=== PATIENT | male | born 1965 | race Two or more races ===

== ENCOUNTER 2021-10-18 04:22 | Emergency (ER) | payer MEDICAID, OTHER ==
[~2021-10-18] VITALS: Ht 177.8 cm; Wt 80.0 kg
[2021-10-18] MEDS ORDERED: ONDANSETRON HCL 4MG/2ML INJ IV STA (04:32)
[2021-10-18] MEDS ORDERED: MORPHINE SULFATE 4 MG/ML CPJ (NOT FOR IM USE) IV STA (04:32)
[2021-10-18] MEDS ORDERED: SODIUM CHLORIDE 0.9% 1,000 ML IV ONE (04:45)
[2021-10-18 05:11] LABS: BASOPHILS % 0.3 % (0.0-2.0); EOSINOPHILS % 0.1 % (0.0-5.0); HEMOGLOBIN. 15.1 g/dL (14.0-18.0); LYMPHOCYTES % 11.7 % (20.0-50.0); MEAN CORPUSCULAR HEMOGLOBIN 30.7 pg (28.0-32.0); MEAN CORPUSCULAR VOLUME 89.3 fL (80.0-94.0); MEAN PLATELET VOLUME 8.2 fl (7.4-10.4); NEUTROPHILS % 81.9 % (40.0-76.0); PLATELET 299 x1000/uL (130-400); RED BLOOD CELL COUNT 4.92 mill/uL (4.7-6.1); RED CELL DISTRIBUTION WIDTH 13.3 % (11.6-14.6)
[2021-10-18 05:22] LABS: CHLORIDE 108 mEq/L (98-107)
[2021-10-18] MEDS ORDERED: IBUP-2030 MT (08:22)
[2021-10-18] MEDS ORDERED: HYDR-4001 MT (08:22)
[2021-10-18 09:00] VITALS: BP 123/85
== END 2021-10-18 09:07 | disposition home or self-care (01) ==
LOC: ER 04:22
DX: R07.89 Other chest pain (principal); R51.9 Headache, unspecified; V49.9XXA Car occupant (driver) (passenger) injured in unspecified traffic accident, initial encounter; Y93.89 Activity, other specified; Y92.89 Other specified places as the place of occurrence of the external cause; Y99.8 Other external cause status
CPT/HCPCS: 36415; 70450; 71045; 71260; 72125; 80048; 85025; 96361; 96374; 96375; 99291; J2270; J2405; J7030

== ENCOUNTER 2023-10-04 18:09 | Inpatient (IN) | payer SELFPAY ==
[~2023-10-04] VITALS: Ht 172.7 cm; Wt 81.6 kg
[~2023-10-04 18:09] MED LIST: HYDR-4001 MT; IBUP-2030 MT
[2023-10-04] MEDS ORDERED: KETOROLAC 15MG/ML VIAL IM ONE (18:30)
[2023-10-04] MEDS: MORPHINE SULFATE 4 MG/ML INJ (FOR IV/IM USE) IV ONE ×2 (20:42→22:12)
[2023-10-04] MEDS: PROPOFOL 200MG/20ML VIAL IV ONE (21:02)
[2023-10-05] MEDS ORDERED: ONDANSETRON HCL 4MG/2ML INJ IV PRN (02:15)
[2023-10-05] MEDS ORDERED: GUAIFENESIN 200MG/10ML SUGAR FREE UDC PO PRN (02:15)
[2023-10-05] MEDS ORDERED: IPRATROPIUM/ALBUTEROL 0.5-3(2.5)MG/3ML NEB HHN PRN (02:15)
[2023-10-05] MEDS ORDERED: DOCUSATE SODIUM 100MG CAPSULE PO PRN (02:15)
[2023-10-05] MEDS ORDERED: MAGNESIUM/ALUMINUM HYDROXIDE/SIMETHICONE 30ML UDC PO PRN (02:15)
[2023-10-05] MEDS ORDERED: ACETAMINOPHEN 325MG TABLET PO PRN (02:15)
[2023-10-05] MEDS ORDERED: CLONIDINE 0.1MG TABLET PO PRN (02:15)
[2023-10-05] MEDS ORDERED: NALOXONE HCL 0.4MG/ML VIAL IV PRN (02:30)
[2023-10-05 05:02] LABS: CREATINE KINASE 115 IU/L (46-171)
[2023-10-05 05:06] LABS: PARTIAL THROMBOPLASTIN TIME 27.5 sec (23.4-31.0); PROTHROMBIN TIME 10.9 sec (9.6-11.0)
[2023-10-05] MEDS: MORPHINE SULFATE 2 MG/ML CPJ (NOT FOR IM USE) IV PRN (10:33)
[2023-10-05 11:39] VITALS: BP 133/79; PULSE 82; RESP 18; TEMP 98.4
[2023-10-05 16:00] VITALS: BP 118/71; PULSE 66; RESP 20; TEMP 98.2
[2023-10-05 16:03] LABS: CREATINE KINASE 83 IU/L (46-171)
[2023-10-05 19:48] VITALS: BP 138/86; PULSE 78; RESP 22; TEMP 96.9
[2023-10-05 23:35] LABS: CLARITY URINE CLEAR (CLEAR); COLOR URINE DARK YELLOW (YELLOW); GLUCOSE URINE NEGATIVE (NEGATIVE); KETONES URINE TRACE (NEGATIVE); LEUKOCYTE ESTERASE URINE NEGATIVE (NEGATIVE); NITRITE URINE NEGATIVE (NEGATIVE); OCCULT BLOOD URINE NEGATIVE (NEGATIVE); PROTEIN URINE NEGATIVE (NEGATIVE); SPECIFIC GRAVITY URINE 1.026 (1.005-1.030)
[2023-10-05 23:49] VITALS: BP 127/78; PULSE 73; RESP 19; TEMP 97.3
[2023-10-06 04:19] VITALS: BP 127/74; PULSE 88; RESP 20; TEMP 96.9
[2023-10-06 07:41] LABS: BASOPHILS % 0.4 % (0.0-2.0); EOSINOPHILS % 1.9 % (0.0-5.0); HEMATOCRIT. 42.7 % (42.0-52.0); HEMOGLOBIN. 14.9 g/dL (14.0-18.0); LYMPHOCYTES % 23.7 % (20.0-50.0); MEAN CORPUSCULAR HEMOGLOBIN 30.6 pg (28.0-32.0); MEAN CORPUSCULAR HGB CONC 34.9 g/dL (31.0-37.0); MEAN CORPUSCULAR VOLUME 87.7 fL (80.0-94.0); MEAN PLATELET VOLUME 8.8 fl (7.4-10.4); MONOCYTES % 10.5 % (2.0-8.0); NEUTROPHILS % 63.5 % (40.0-76.0); PLATELET 199 x1000/uL (130-400); RED BLOOD CELL COUNT 4.86 mill/uL (4.7-6.1); RED CELL DISTRIBUTION WIDTH 13.7 % (11.6-14.6); WHITE BLOOD COUNT 7.3 x1000/uL (4.5-11.0)
[2023-10-06 08:00] VITALS: BP 102/78; PULSE 72; RESP 18; TEMP 97.7
[2023-10-06 08:19] LABS: ALANINE AMINOTRANSFERASE < 7 IU/L (10-49); ALBUMIN 3.8 g/dL (3.2-4.8); ASPARTATE AMINOTRANSFERASE 15 IU/L (<34); BILIRUBIN TOTAL 0.8 mg/dL (0.1-1.0); CALCIUM 8.3 mg/dL (8.7-10.4); CARBON DIOXIDE 26 mEq/L (21-32); CHLORIDE 104 mEq/L (98-107); CHOLESTEROL 160 mg/dL (<200); CREATININE 0.6 mg/dL (0.6-1.3); GLUCOSE 106 mg/dL (70-105); HDL CHOLESTEROL 46 mg/dL (>55); LDL CHOLESTEROL 93 mg/dL (5-100); POTASSIUM 3.9 mEq/L (3.5-5.1); PROTEIN TOTAL 6.1 g/dL (6.0-8.3); SODIUM 138 mEq/L (136-145); T4 FREE 1.23 ng/dL (0.89-1.76); THYROID STIMULATING HORMONE 1.52 uIU/mL (0.55-4.78); TRIGLYCERIDE 99 mg/dL (0-150); UREA NITROGEN BLOOD 9 mg/dL (9-23)
[2023-10-06 12:00] VITALS: BP 110/71; PULSE 68; RESP 18; TEMP 97.9
[2023-10-06] MEDS: ENOXAPARIN 40MG/0.4ML SYR SUBCUT SCH (14:52)
[2023-10-06 16:00] VITALS: BP 131/72; PULSE 77; RESP 18; TEMP 98.2
[2023-10-06 20:00] VITALS: BP 122/70; PULSE 83; RESP 18; TEMP 97
[2023-10-06] MEDS: DEXT 5%/LACTATED RINGERS 1,000 ML IV SCH (21:17)
[2023-10-07 08:00] VITALS: BP 112/68; PULSE 70; RESP 18; TEMP 98.1
[2023-10-07 12:00] VITALS: BP 120/70; PULSE 74; RESP 20; TEMP 97.3
[2023-10-07 16:00] VITALS: BP 121/70; PULSE 80; RESP 20; TEMP 96.9
[2023-10-07] MEDS: ACETAMINOPHEN 325MG TABLET PO PRN (17:50)
[2023-10-07 19:47] VITALS: BP 129/75; PULSE 77; RESP 20; TEMP 97.3
[2023-10-07 23:45] VITALS: BP 121/71; PULSE 72; RESP 20; TEMP 97.6
[2023-10-08 04:00] VITALS: BP 124/66; PULSE 89; RESP 20; TEMP 98.1
[2023-10-08 05:56] LABS: BASOPHILS % 0.5 % (0.0-2.0); HEMOGLOBIN. 13.7 g/dL (14.0-18.0); LYMPHOCYTES % 15.4 % (20.0-50.0); MEAN CORPUSCULAR HEMOGLOBIN 30.7 pg (28.0-32.0); MEAN CORPUSCULAR HGB CONC 35.2 g/dL (31.0-37.0); MEAN CORPUSCULAR VOLUME 87.2 fL (80.0-94.0); MEAN PLATELET VOLUME 9.2 fl (7.4-10.4); MONOCYTES % 10.9 % (2.0-8.0); NEUTROPHILS % 71.2 % (40.0-76.0); PLATELET 216 x1000/uL (130-400); RED BLOOD CELL COUNT 4.47 mill/uL (4.7-6.1); RED CELL DISTRIBUTION WIDTH 13.6 % (11.6-14.6); WHITE BLOOD COUNT 10.3 x1000/uL (4.5-11.0)
[2023-10-08 06:07] LABS: CALCIUM 8.1 mg/dL (8.7-10.4); CARBON DIOXIDE 25 mEq/L (21-32); CHLORIDE 106 mEq/L (98-107); CREATININE 0.5 mg/dL (0.6-1.3); GLUCOSE 112 mg/dL (70-105); POTASSIUM 3.9 mEq/L (3.5-5.1); SODIUM 137 mEq/L (136-145); UREA NITROGEN BLOOD 6 mg/dL (9-23)
[2023-10-08 08:00] VITALS: BP 106/64; PULSE 75; RESP 20; TEMP 97.9
[2023-10-08 12:00] VITALS: BP 111/67; PULSE 79; RESP 16; TEMP 98.2
[2023-10-08 16:00] VITALS: BP 111/63; PULSE 82; RESP 20; TEMP 98.1
[2023-10-08 20:00] VITALS: BP 112/75; PULSE 72; RESP 18; TEMP 99
[2023-10-09] VITALS: BP 121/77; PULSE 72; RESP 18; TEMP 99
[2023-10-09 04:00] VITALS: BP 98/54; PULSE 68; RESP 18; TEMP 98.6
[2023-10-09 08:00] VITALS: BP 103/60; PULSE 73; RESP 18; TEMP 97.7
[2023-10-09 12:00] VITALS: BP 99/61; PULSE 81; RESP 18; TEMP 97.6
[2023-10-09 16:00] VITALS: BP 116/65; PULSE 77; RESP 18; TEMP 97.6
[2023-10-09 20:00] VITALS: BP 126/63; PULSE 82; RESP 17; TEMP 97.9
[2023-10-10] VITALS: BP 126/63; PULSE 82; RESP 17; TEMP 97.9
[2023-10-10 08:00] VITALS: BP 110/73; PULSE 80; RESP 18; TEMP 98.3
[2023-10-10] MEDS ORDERED: HYDROCODONE/ACETAMINOPHEN 7.5/325MG TABLET PO PRN ×2 (11:00)
[2023-10-10] MEDS ORDERED: NALOXONE HCL 0.4MG/ML VIAL IV PRN (11:15)
[2023-10-10 12:01] VITALS: BP 112/60; PULSE 76; RESP 18; TEMP 97.9
[2023-10-10 16:00] VITALS: BP 92/62; PULSE 76; RESP 18; TEMP 98.9
[2023-10-10 20:00] VITALS: BP 139/87; PULSE 56; RESP 18; TEMP 97
[2023-10-11] VITALS: BP 112/63; PULSE 70; RESP 17; TEMP 98.2
[2023-10-11 04:00] VITALS: BP 130/58; PULSE 68; RESP 18; TEMP 98
[2023-10-11 08:00] VITALS: BP 108/65; PULSE 80; RESP 18; TEMP 97.5
[2023-10-11 12:00] VITALS: BP 125/67; PULSE 81; RESP 18; TEMP 97.6
== END 2023-10-11 16:30 | disposition left against medical advice (07) | DRG 342 ==
LOC: ER 18:09 → 4WST 21:51 → EDBEDREQTM 21:53 → EDBEDREQ 21:53
PROVIDERS: ADMIT Hospitalist; ATTEND Hospitalist
PROC: 0SSGXZZ Reposition Left Ankle Joint, External Approach (ICD-10-PCS; principal; 2023-10-04)
DX: S93.05XA Dislocation of left ankle joint, initial encounter (principal); F17.210 Nicotine dependence, cigarettes, uncomplicated; Z20.822 Contact with and (suspected) exposure to COVID-19; Z53.29 Procedure and treatment not carried out because of patient's decision for other reasons; S82.309A Unspecified fracture of lower end of unspecified tibia, initial encounter for closed fracture; W10.9XXA Fall (on) (from) unspecified stairs and steps, initial encounter; Y93.89 Activity, other specified; Y92.89 Other specified places as the place of occurrence of the external cause; Y99.8 Other external cause status
CPT/HCPCS: 36415; 71045; 73600; 73610; 73630; 80048; 80053; 80061; 81003; 82550; 83036; 84439; 84443; 85025; 86850; 86900; 87426; 93005; 93970; 99285; J1650; J2270; J2704